=== PATIENT | female | born 1955 | race Caucasian/White ===

== ENCOUNTER → 2018-05-20 | Outpatient (CLI) | payer MEDICARE, MEDICAID ==
[~2018-05-20] MED LIST: ADVAIR 500-501 EACH INH; ADVAIR PO; ALBUTEROL2.5 MG/0.5; AMBIEN 10 MG TA10 MG PO; AMOXICILLIN 50500 MG PO; AMOXICILLIN875 MG PO; ANCEF 1GM1 GM/50 M2 IV; APAP500 PO; ASPIRIN325 PO; ATROVENT HFA14 GM INH; B-122500 MC1 PO; BISACODYL SUPP10 MG RECTAL; BREO ELLIPTA 11 EACH INH; CELEBREX 200 M200 M1; CENTRUM SILVER1 EAC4 PO; CIPRO500 MG PO; COLACE100 MG; COLACE100 MG PO; CYMBALTA30 MG PO; CYMBALTA60 MG; CYMBALTA60 MG PO; DIFLUCAN100 MG PO; DIFLUCAN200 MG PO; DURAGESIC1 EAC1 TRANSDERM; ERYTHROMYCIN E3.5 G1 OPHTHALMIC; FLEXERIL PO; FLOMAX0.4 MG; FLOMAX0.4 MG PO; FLONASE 0.05%50 MCG NASAL; GLUCOPHAGE500 MG; HYDROCODON-ACE1 EAC7 PO; HYDROCODONE-APA1 TA1 PO; IBUPROFEN 800800 M1 PO; IMITREX100 MG PO; IRON 65 MG PO; IRON325 M1 PO; IRON325 PO; KLOR-CON 1010 MEQ PO; LASIX 40 MG TAB40 M1; MACROBID 100 M100 M2 PO; METAMUCIL1 EAC1 PO; METFORMIN HCL500 MG; METFORMIN HCL500 MG PO; METOCLOPRAM5 MG/5 ML PO; METOCLOPRAMIDE 55 MG; MILK OF MA400 MG/5 M PO; MINOCIN100 MG PO; MOM PO; MUCINEX TA600 MG/TA1; MUCINEX TA600 MG/TA2 PO; MULTI-VITAMIN1 EAC5 PO; NAPROSYN500 MG; NAPROSYN500 MG PO; NASONEX17 GM; NEURONTIN 300300 M1 PO; NEURONTIN600 MG PO; NEXIUM40 MG PO; NORCO 10-325 T1 EACH PO; NORCO 5-325 TA1 EACH PO; NORVASC5 MG PO; NYSTATIN 100,0015 GM TOP; OMEPRAZOLE40 MG PO; OXYCODONE HCL 55 MG PO; OXYCONTIN15 MG PO; OXYCONTIN20 M1 PO; PENICILLIN V P500 MG PO; PERCOCET 5-3251 EACH PO; POTASSIUM20 PO; PROAIR HFA8.5 GM INH; ROXICODONE5 MG PO; SEROQUEL 25 MG25 M1; SINGULAIR 10 MG10 M1; SPIRIVA; SUDAFED 12 HOU120 MG PO; SUMATRIPTAN SUC50 MG PO; TOBRAMYCIN SULFA5 ML OPHTHALMIC; TRIAMTERENE/HCT1 CA1; VENTOLIN HFA 1818 GM INH; VITAMIN D1000 UNI1 PO; XANAX 0.5 MG0.5 M1 PO; XANAX 1 MG TABLE1 MG PO; XARELTO10 MG PO; ZANAFLEX4 MG PO; ZYRTEC10 M5 PO
== END ==
LOC: M.RAD 09:47
DX: N63.10 Unspecified lump in the right breast, unspecified quadrant (principal); N64.4 Mastodynia

== ENCOUNTER → 2018-07-30 | Outpatient (CLI) | payer MEDICARE, MEDICAID | LOC: M.ULTRA 07-29 14:30 | DX: N28.89 Other specified disorders of kidney and ureter (principal); J44.9 Chronic obstructive pulmonary disease, unspecified; I10 Essential (primary) hypertension; K21.9 Gastro-esophageal reflux disease without esophagitis; G43.909 Migraine, unspecified, not intractable, without status migrainosus; Z87.891 Personal history of nicotine dependence ==

== ENCOUNTER → 2019-03-26 | Outpatient (CLI) | payer MEDICARE, MEDICAID | LOC: M.ULTRA 15:00 | DX: N13.30 Unspecified hydronephrosis (principal) ==

== ENCOUNTER 2019-04-05 17:40 | Emergency (ER) | payer MEDICARE, MEDICAID ==
[~2019-04-05] VITALS: Ht 157.5 cm; Wt 86.6 kg
[2019-04-05 18:14] LABS: ABSOLUTE LYMPHOCYTES 1.6 thou/uL (0.8-5.3); ABSOLUTE MONOCYTES 0.5 thou/uL (0.0-1.2); ABSOLUTE NEUTROPHILS 7.8 thou/uL (1.6-8.1); BASOPHILS 0.4 %; EOSINOPHILS 0.4 %; LYMPHOCYTES 15.9 %; MCH 24.9 pg (26.0-34.0); MCHC 32.6 g/dL (28.0-37.0); MCV 76.4 fL (80.0-100.0); MONOCYTES 5.3 %; MPV 7.1 fl. (7.2-11.1); NUCLEATED RBCS 0 /100WBC; PLATELET COUNT* 336 thou/uL (150-400); RBC 5.23 mil/uL (4.20-5.00); RDW-CV 18.3 % (10.5-14.5)
[2019-04-05] MEDS ORDERED: AMLODIPINE BESY10 MG PO (18:21)
[2019-04-05] MEDS ORDERED: FLOMAX0.4 MG PO (18:21)
[2019-04-05 18:23] LABS: ANION GAP 8 mmol/L (7-16); APTT 26.9 Seconds (25.0-31.3); BUN 26 mg/dL (7-18); CALCIUM 8.9 mg/dL (8.5-10.1); CHLORIDE 99 mmol/L (98-107); CO2 29 mmol/L (21-32); CREATININE 0.8 mg/dL (0.6-1.3); GLUCOSE 153 mg/dL (70-99); POTASSIUM 3.4 mmol/L (3.5-5.1); PROTIME 10.1 Seconds (9.20-11.50); SODIUM 136 mmol/L (136-145)
[2019-04-05] MEDS ORDERED: PROAIR HFA8.5 GM INH (18:23)
[2019-04-05] MEDS ORDERED: LASIX 40 MG TAB40 M2 PO (18:24)
[2019-04-05] MEDS ORDERED: IRON325 PO (18:25)
[2019-04-05] MEDS ORDERED: VITAMIN D2000 UNIT PO (18:25)
[2019-04-05] MEDS ORDERED: COLACE100 MG PO (18:25)
[2019-04-05 18:32] LABS: ALBUMIN 3.3 g/dL (3.4-5.0); ALKALINE PHOSPHATASE 174 U/L (46-116); LIPASE 90 U/L (73-393); MAGNESIUM 1.7 mg/dL (1.8-2.4); NT-PRO BRAIN NAT PEPTIDE 36 pg/mL (<300); SGOT 15 U/L (15-37); SGPT 25 U/L (30-65); TOTAL BILIRUBIN 0.3 mg/dL (<0.1-1.0); TOTAL PROTEIN 6.6 g/dL (6.4-8.2); TROPONIN-I LEVEL <0.06 ng/mL (<0.06)
[2019-04-05] MEDS ORDERED: PREDNISONE50 MG PO (20:58)
[2019-04-05] MEDS ORDERED: PERCOCET 7.5-31 EACH PO (20:58)
[2019-04-05 21:05] VITALS: BP 142/73
--- NOTE | 2019-04-06 12:45 | EKG ---
[place] [address] ELECTROCARDIOGRAM REPORT Name: QUITA MACK Room: [facility]#: [id number] Admission: 04/05/19 Attend Phys: Discharge: 04/05/19 Date of : 59 Report #: [id number] THIS REPORT FOR: //name// [facility] ED Test Date: 2019-04-05 Test Time: 17:41:14 Pat Name: QUITA MACK Department: Room: Gender: F Back Roller: Rhonda DAWN : 1955 Requested By: Joaquin Knox Order Number: [id number] MD: José Antonio Morel Measurements Intervals [place] Rate: 74 P: 35 UT: 187 QRS: 9 QRSD: 98 T: 12 QT: 391 QTc: 434 Interpretive Statements Sinus rhythm Left atrial enlargement Abnormal R-wave progression, late transition Inferior infarct, old Compared to ECG 02/15/2015 22:36:23 Atrial abnormality now present Myocardial infarct finding still present Electronically Signed On 04-06-2019 12:45:32 CDT by José Antonio Morel [email or web address] <ELECTRONICALLY SIGNED> By: José Antonio Morel MD, [facility] 04/06/19 1245 1741 1741 José Antonio Morel MD, [facility] /EPI
== END 2019-04-05 21:05 | disposition home or self-care (01) ==
LOC: M.ERS 17:40
PROVIDERS: Emergency Medicine Emergency Medical Services
DX: J40 Bronchitis, not specified as acute or chronic (principal); M25.552 Pain in left hip; J44.9 Chronic obstructive pulmonary disease, unspecified; M79.7 Fibromyalgia; G43.909 Migraine, unspecified, not intractable, without status migrainosus; M19.90 Unspecified osteoarthritis, unspecified site; F32.9 Major depressive disorder, single episode, unspecified; F41.9 Anxiety disorder, unspecified; F17.210 Nicotine dependence, cigarettes, uncomplicated; Z98.890 Other specified postprocedural states; Z90.49 Acquired absence of other specified parts of digestive tract; Z90.710 Acquired absence of both cervix and uterus; Z88.1 Allergy status to other antibiotic agents

== ENCOUNTER → 2020-03-07 | Outpatient (CLI) | payer MEDICARE, MEDICAID ==
[~2020-03-07] MED LIST changes: +AMLODIPINE BESY10 MG PO; +LASIX 40 MG TAB40 M2 PO; +PERCOCET 7.5-31 EACH PO; +PREDNISONE50 MG PO; +VITAMIN D2000 UNIT PO
[2020-03-07 16:23] LABS: ABSOLUTE EOSINOPHILS 0.1 thou/uL (0.0-0.7); ABSOLUTE LYMPHOCYTES 1.5 thou/uL (0.8-5.3); RBC 4.61 mil/uL (4.20-5.00); WBC 9.1 thou/uL (4.0-11.0)
[2020-03-07 16:25] LABS: ABSOLUTE BASOPHILS 0.1 thou/uL (0.0-0.2); ABSOLUTE MONOCYTES 0.6 thou/uL (0.0-1.2); ABSOLUTE NEUTROPHILS 6.8 thou/uL (1.6-8.1); BASOPHILS 0.8 %; EOSINOPHILS 1.6 %; HEMOGLOBIN 12.9 gm/dL (12.0-15.0); LYMPHOCYTES 16.7 %; MCHC 33.2 g/dL (28.0-37.0); MCV 84.4 fL (80.0-100.0); MONOCYTES 6.3 %; MPV 7.3 fl. (7.2-11.1); NUCLEATED RBCS 0 /100WBC; PLATELET COUNT* 315 thou/uL (150-400); POLYS 74.6 %; RDW-CV 16.8 % (10.5-14.5)
[2020-03-07 16:36] LABS: ALBUMIN 3.7 g/dL (3.4-5.0); CALCIUM 9.2 mg/dL (8.5-10.1); CREATININE 0.6 mg/dL (0.6-1.3); POTASSIUM 4.1 mmol/L (3.5-5.1); TOTAL BILIRUBIN 0.4 mg/dL (<0.1-1.0); TOTAL PROTEIN 6.7 g/dL (6.4-8.2)
== END ==
LOC: M.LAB 16:07
DX: M86.352 Chronic multifocal osteomyelitis, left femur (principal); Z79.2 Long term (current) use of antibiotics

== ENCOUNTER 2020-08-03 16:09 | Emergency (ER) | payer MEDICARE, MEDICAID ==
[~2020-08-03] VITALS: Ht 154.9 cm; Wt 83.9 kg
[2020-08-03 16:32] LABS: ABSOLUTE BASOPHILS 0.1 thou/uL (0.0-0.2); ABSOLUTE EOSINOPHILS 0.1 thou/uL (0.0-0.7); ABSOLUTE LYMPHOCYTES 2.5 thou/uL (0.8-5.3); ABSOLUTE MONOCYTES 0.7 thou/uL (0.0-1.2); BASOPHILS 0.7 %; EOSINOPHILS 0.7 %; HEMATOCRIT 43.6 % (37.0-47.0); HEMOGLOBIN 15.1 gm/dL (12.0-15.0); LYMPHOCYTES 26.9 %; MCH 30.9 pg (26.0-34.0); MCHC 34.6 g/dL (28.0-37.0); MCV 89.4 fL (80.0-100.0); MONOCYTES 7.6 %; MPV 7.4 fl. (7.2-11.1); NUCLEATED RBCS 0 /100WBC; PLATELET COUNT* 295 thou/uL (150-400); POLYS 64.1 %; RBC 4.88 mil/uL (4.20-5.00); RDW-CV 16.2 % (10.5-14.5); WBC 9.4 thou/uL (4.0-11.0)
[2020-08-03 16:40] LABS: CALCIUM 9.4 mg/dL (8.5-10.1); CREATININE 0.8 mg/dL (0.6-1.3); POTASSIUM 4.1 mmol/L (3.5-5.1)
[2020-08-03 16:43] LABS: APTT 26.9 Seconds (25.0-31.3); PROTIME 10.7 Seconds (9.20-11.50)
[2020-08-03] MEDS ORDERED: ASA81BEC PO (16:43)
[2020-08-03] MEDS ORDERED: MICARDIS40 MG PO (16:43)
[2020-08-03] MEDS ORDERED: LIPITOR40 MG PO (16:44)
[2020-08-03] MEDS ORDERED: TOPROL XL25 MG PO (16:44)
[2020-08-03 16:55] LABS: ALBUMIN 4.4 g/dL (3.4-5.0); MAGNESIUM 1.6 mg/dL (1.8-2.4); TOTAL BILIRUBIN 0.6 mg/dL (<0.1-1.0); TOTAL PROTEIN 7.2 g/dL (6.4-8.2)
[2020-08-03] MEDS ORDERED: NORCO 5-325 TA1 EAC2 PO (17:22)
[2020-08-03] MEDS ORDERED: PREDNISONE 20 M20 M1 PO (17:22)
[2020-08-03] MEDS ORDERED: ZPAK PO (17:22)
[2020-08-03 17:31] VITALS: BP 128/62
--- NOTE | 2020-08-04 11:51 | EKG ---
[place] [address] ELECTROCARDIOGRAM REPORT Name: QUITA MACK Room: [facility]#: [id number] Admission: 08/03/20 Attend Phys: Discharge: 08/03/20 Date of : 59 Date of Service: 08/03/20 1616 Report #: [id number] THIS REPORT FOR: //name// [facility] ED Test Date: 2020-08-03 Test Time: 16:16:42 Pat Name: QUITA MACK Department: Room: Gender: F Barnworker Groom: TARSHA : 1955 Requested By: Ricky Ventura Order Number: [id number] MD: José Antonio Morel Measurements Intervals [place] Rate: 88 P: 88 MS: 176 QRS: 146 QRSD: 96 T: 49 QT: 365 QTc: 442 Interpretive Statements Sinus rhythm Ventricular premature complex Probable left atrial enlargement Abnormal R-wave progression, late transition Inferior infarct, old possible Baseline wander in lead(s) V1,V2 Compared to ECG 04/05/2019 17:41:14 Ventricular premature complex(es) now present Myocardial infarct finding still present Electronically Signed On 08-04-2020 11:50:53 CDT by José Antonio Morel [email or web address] <ELECTRONICALLY SIGNED> By: José Antonio Morel MD, [facility] 08/04/20 1150 1616 1616 José Antonio Morel MD, [facility] /EPI
== END 2020-08-03 17:31 | disposition home or self-care (01) ==
LOC: M.ERS 16:09
PROVIDERS: Family Medicine
DX: J20.9 Acute bronchitis, unspecified (principal); Z20.828 Contact with and (suspected) exposure to other viral communicable diseases; J44.9 Chronic obstructive pulmonary disease, unspecified; F17.210 Nicotine dependence, cigarettes, uncomplicated; Z90.710 Acquired absence of both cervix and uterus; Z79.899 Other long term (current) drug therapy; Z79.82 Long term (current) use of aspirin; Z88.1 Allergy status to other antibiotic agents

== ENCOUNTER 2021-01-13 18:20 | Emergency (ER) | payer MEDICARE, MEDICAID ==
[~2021-01-13] VITALS: Ht 180.3 cm; Wt 87.5 kg
[~2021-01-13 18:20] MED LIST changes: +ASA81BEC PO; +LIPITOR40 MG PO; +MICARDIS40 MG PO; +NORCO 5-325 TA1 EAC2 PO; +PREDNISONE 20 M20 M1 PO; +TOPROL XL25 MG PO; +ZPAK PO
[2021-01-13 19:05] LABS: ABSOLUTE LYMPHOCYTES 1.1 thou/uL (0.8-5.3); ABSOLUTE MONOCYTES 0.5 thou/uL (0.0-1.2); ABSOLUTE NEUTROPHILS 5.4 thou/uL (1.6-8.1); BASOPHILS 0.4 %; EOSINOPHILS 0.1 %; HEMATOCRIT 37.5 % (37.0-47.0); HEMOGLOBIN 12.8 gm/dL (12.0-15.0); LYMPHOCYTES 15.7 %; MCH 30.3 pg (26.0-34.0); MCHC 34.1 g/dL (28.0-37.0); MCV 88.9 fL (80.0-100.0); MONOCYTES 6.8 %; MPV 7.2 fl. (7.2-11.1); NUCLEATED RBCS 0 /100WBC; PLATELET COUNT* 307 thou/uL (150-400); RBC 4.22 mil/uL (4.20-5.00); RDW-CV 14.9 % (10.5-14.5)
[2021-01-13 19:22] LABS: CALCIUM 9.5 mg/dL (8.5-10.1); CREATININE 0.8 mg/dL (0.6-1.3); POTASSIUM 3.6 mmol/L (3.5-5.1)
[2021-01-13 19:26] LABS: ALBUMIN 3.7 g/dL (3.4-5.0); TOTAL BILIRUBIN 0.5 mg/dL (<0.1-1.0); TOTAL PROTEIN 7.1 g/dL (6.4-8.2)
[2021-01-13 20:24] LABS: URINE BILIRUBIN NEGATIVE (Negative); URINE BLOOD NEGATIVE (Negative); URINE CLARITY CLEAR; URINE COLOR YELLOW; URINE GLUCOSE-RANDOM NEGATIVE (Negative); URINE KETONES NEGATIVE (Negative); URINE LEUKOCYTES-REFLEX 1+ (Negative); URINE NITRITE-REFLEX NEGATIVE (Negative); URINE PROTEIN NEGATIVE (Negative); URINE SPECIFIC GRAVITY <= 1.005 (1.005-1.030); URINE UROBILINOGEN 0.2 E.U./dl (0.2-1.0)
[2021-01-13 20:31] LABS: SQUAMOUS 4-10 Moderate /LPF (0-3); URINE WBC-REFLEX 0-5 Rare /HPF (0-5)
[2021-01-13 20:32] LABS: CASTS None Seen /LPF (None Seen); CRYSTALS None Seen /LPF (None Seen); MUCUS None Seen strn/LPF (None Seen); URINE RBC 0-2 Rare /HPF (0-2)
[2021-01-13] MEDS ORDERED: HYDROCODON-ACE1 EAC7 PO (20:33)
[2021-01-13 20:53] VITALS: BP 126/55
== END 2021-01-13 20:53 | disposition home or self-care (01) ==
LOC: M.ERS 18:20
PROVIDERS: Physician Assistant
DX: R19.7 Diarrhea, unspecified (principal); R10.84 Generalized abdominal pain; J44.9 Chronic obstructive pulmonary disease, unspecified; M79.7 Fibromyalgia; K21.9 Gastro-esophageal reflux disease without esophagitis; G43.909 Migraine, unspecified, not intractable, without status migrainosus; I10 Essential (primary) hypertension; M19.90 Unspecified osteoarthritis, unspecified site; Z88.1 Allergy status to other antibiotic agents; Z88.8 Allergy status to other drugs, medicaments and biological substances; Z90.710 Acquired absence of both cervix and uterus; Z90.49 Acquired absence of other specified parts of digestive tract

== ENCOUNTER → 2021-01-19 | Outpatient (CLI) | payer MEDICARE, MEDICAID | LOC: M.LAB 12:11 | PROVIDERS: ATTEND Internal Medicine Infectious Disease | DX: Z12.31 Encounter for screening mammogram for malignant neoplasm of breast (principal); R19.7 Diarrhea, unspecified ==

== ENCOUNTER → 2021-04-10 | Outpatient (CLI) | payer MEDICARE, MEDICAID ==
[2021-04-10 16:02] LABS: ABSOLUTE EOSINOPHILS 0.1 thou/uL (0.0-0.7); ABSOLUTE LYMPHOCYTES 1.5 thou/uL (0.8-5.3); ABSOLUTE MONOCYTES 0.6 thou/uL (0.0-1.2); ABSOLUTE NEUTROPHILS 7.1 thou/uL (1.6-8.1); BASOPHILS 0.3 %; EOSINOPHILS 1.3 %; HEMATOCRIT 41.2 % (37.0-47.0); LYMPHOCYTES 15.9 %; MCH 30.5 pg (26.0-34.0); MCHC 33.8 g/dL (28.0-37.0); MCV 90.1 fL (80.0-100.0); MONOCYTES 6.6 %; MPV 6.8 fl. (7.2-11.1); NUCLEATED RBCS 0 /100WBC; PLATELET COUNT* 342 thou/uL (150-400); POLYS 75.9 %; RBC 4.58 mil/uL (4.20-5.00); RDW-CV 14.3 % (10.5-14.5); WBC 9.3 thou/uL (4.0-11.0)
[2021-04-10 16:13] LABS: ALBUMIN 4.1 g/dL (3.4-5.0); CALCIUM 9.4 mg/dL (8.5-10.1); CREATININE 0.6 mg/dL (0.6-1.3); TOTAL BILIRUBIN 0.4 mg/dL (<0.1-1.0); TOTAL PROTEIN 7.7 g/dL (6.4-8.2)
[2021-04-10 17:05] LABS: ESR (SEDRATE) 60 mm/hr (0-30)
== END ==
LOC: M.LAB 15:41
PROVIDERS: ATTEND Internal Medicine Infectious Disease
DX: R19.7 Diarrhea, unspecified (principal); Z79.2 Long term (current) use of antibiotics